=== PATIENT | male | born 1985 | race Caucasian/White ===

== ENCOUNTER 2018-01-17 14:34 | Emergency (ER) | payer OTHER ==
[2018-01-17] MEDS ORDERED: Sodium Chloride 0.9% 1,000 ML IV ONE (15:17)
--- NOTE | 2018-01-17 15:23 | ED Physician Chart ---
ED Chief Complaint/HPI - Patient Information Date Seen:: 01/17/18 Time Seen:: 15:10 Chief Complaint:: vomiting History of Present Illness:: Patient developed sudden onset of dizziness and vomiting 30 minutes ago. He vomited twice. No diarrhea. No abdominal pain at present although over the last year he has had episodes of right upper quadrant pain. He complains of occipital headache which is apparently now mild. He has the sensation of not being able to control his body movements. Allergies:: Allergies Allergy/AdvReac Type Severity Reaction Status Date / Time No Known Allergies Allergy Verified 01/17/18 15:06 Vitals:: Vital Signs - 8 hr 01/17/18 15:06 Temp 97.6 F HR 65 RR 16 BP 121/71 O2 Sat % 97 Historian:: Patient Review:: Nurse's Note Reviewed ED Review of Systems - Review of Systems General/Constitutional: No fever, No chills, Weakness Skin: No skin lesions Head: Headache Eyes: No loss of vision ENT: No earache Neck: No neck pain, No swelling Pulmonary: No SOB, No cough GI: Nausea, Vomiting G/U: Dysuria Musculoskeletal: No bone or joint pain Endocrine: No polyuria Psychiatric: No prior psych history Hematopoietic: No bruising Allergic/Immuno: No urticaria Neurological: No syncope, No focal symptoms, Weakness, Headache ED Assessment - Assessment General Assessment: At 1605 patient did not feel subjectively improved; fundal examination was performed and optic discs were sharp; will do a CAT scan of her head since there was no improvement with Imitrex. CAT scan was done and was normal. Patient initially had slightly halting speech. Patient's speech improved. He felt better before discharge and was able to ambulate to the bathroom. Extraocular movements were checked before discharge and noted to be intact without nystagmus. I feel that the patient may have experienced a first migraine headache. He mentioned that his mother suffers from migraine headaches. Since he did feel better after the Imitrex I prescribed Imitrex 100 mg #9 to take one half to one daily when necessary for headaches. ED Septic Shock - . Is Septic Shock (SBP<90, OR Lactate>4 mmol\L) present?: No - <6hrs of presentation: Vital Signs: Vital Signs - 8 hr 01/17/18 15:06 Temp 97.6 F HR 65 RR 16 BP 121/71 O2 Sat % 97 ED Reassessment (Disposition) - Reassessment Reassessment Condition:: Improved - Diagnosis Diagnosis:: Acute viral syndrome; hypokalemia; first migraine headache - Aftercare/Follow up Instructions Aftercare/Follow-Up Instructions:: Refer to Discharge Instructions Medication Prescribed:: Imitrex 100 mg to take one half to one daily as necessary for headache - Patient Disposition Discharge/Transfer:: Home Condition at Disposition:: Stable, Improved
[2018-01-17 15:34] LABS: % BASOPHILS 2.3 % (0.0-2.0); % EOSINOPHILS 1.9 % (0.0-5.0); % LYMPHOCYTES 28.5 % (20.0-50.0); % MONOCYTES 6.4 % (2.0-10.0); % NEUTROPHILS 60.9 % (40.0-80.0); BASOPHILE ABSOLUTE 0.1 Th/cumm (0-0.2); EOSINOPHILE ABSOLUTE 0.1 Th/cmm (0.1-0.4); HEMATOCRIT 52.1 % (41.0-60); HEMOGLOBIN 17.7 gm/dL (12-16); LYMPHOCYTE ABSOLUTE 1.7 Th/cmm (1.5-3.0); MEAN CELL VOLUME 87.7 fl (80-99); MEAN CORPUSCULAR HEMOGLOBIN 29.7 pg (26.0-30.0); MEAN CORPUSCULAR HGB CONC 33.9 pg (28.0-36.0); MEAN PLATELET VOLUME 6.7 fl; MONOCYTE ABSOLUTE 0.4 Th/cmm (0.3-1.0); NEUTROPHILE ABSOLUTE 3.7 Th/cmm (1.8-8.0); PLATELET COUNT 261 Th/cmm (150-400); RED BLOOD COUNT 5.95 Mil/cmm (4.30-5.70)
[2018-01-17 15:50] LABS: ANION GAP 14.6 (7.0-16.0); BUN - UREA NITROGEN 16 mg/dL (7-25); CALCIUM SERUM 9.6 mg/dL (8.6-10.3); CARBON DIOXIDE 25.7 mEq/L (21.0-31.0); CHLORIDE 102 mEq/L (98-107); GFR AFRICAN-AMERICAN > 60.0 ml/min (>90); GFR NON AFRICAN-AMERICAN > 60.0 ml/min; GLUCOSE 121 mg/dL (70-105); MAGNESIUM 2.1 mg/dL (1.9-2.7); POTASSIUM SERUM 3.3 mEq/L (3.5-5.1); SODIUM SERUM 139 mEq/L (136-145)
[2018-01-17] MEDS ORDERED: Potassium Chloride 20 mEq ER Tab PO ONE ×2 (17:02→17:05)
--- NOTE | 2018-01-18 07:40 | Diagnostic Imaging Report ---
Head CT without intravenous contrast Indication: Occipital headache Comparison: None Technique: Axial images were obtained from the vertex to the skull base without IV contrast. Coronal reconstructions were made. Total DLP: 658, CTDI34.8 FINDINGS: Images of the brain obtained without contrast demonstrate no acute hemorrhage. No mass lesions identified. The ventricles and basal cisterns are patent. The soni-white matter differentiation is preserved. There is no mass effect or midline shift. No skull fractures identified. No soft tissue swelling. The paranasal sinuses are clear. IMPRESSION: No acute intracranial abnormality.
== END 2018-01-17 17:34 | disposition home or self-care (01) ==
LOC: ER 14:34
DX: E87.6 Hypokalemia (principal); G43.909 Migraine, unspecified, not intractable, without status migrainosus; B34.9 Viral infection, unspecified; R30.0 Dysuria; R42 Dizziness and giddiness
CPT/HCPCS: 36415-UA; 70450-TC; 80048-TC; 83735-TC; 85025-TC; J7030